=== PATIENT | female | born 1980 | race Caucasian/White ===

== ENCOUNTER 2022-12-15 21:53 | Inpatient (IN) | payer MEDICAID, OTHER ==
[~2022-12-15] VITALS: Ht 165.1 cm; Wt 90.9 kg
[2022-12-16] MEDS ORDERED: HOME MED LIST COMPLETE! XX SCH (00:50)
[2022-12-16] MEDS ORDERED: IBUPROFEN 600MG TAB PO ONE (06:10)
[2022-12-16] MEDS ORDERED: MOM 30ML SUSPENSION UDC PO PRN (06:40)
[2022-12-16] MEDS ORDERED: MAALOX 30 ML SUSP *UDC PO PRN (06:40)
[2022-12-16] MEDS ORDERED: ACETAMINOPHEN TAB 650MG DOSE (2X325MG) PO PRN (06:40)
[2022-12-16] MEDS ORDERED: NICOTINE 21MG/24HR 1 EA TRANSDERMAL TD SCH (09:00)
[2022-12-16 11:05] VITALS: BP 128/84
[2022-12-16] MEDS ORDERED: IBUPROFEN 400MG TAB PO PRN (13:00)
[2022-12-16] MEDS: diphenhydrAMINE 25MG CAP PO PRN ×2 (15:15→22:59)
[2022-12-16 18:00] VITALS: BP 125/68
[2022-12-16] MEDS: traZODone 50 MG TAB PO PRN (22:20)
[2022-12-17 06:43] VITALS: BP 103/57
[2022-12-17] MEDS ORDERED: clonazePAM 0.5 MG TAB PO ONE (10:55)
[2022-12-17] MEDS: DESVENLAFAXINE ER 50MG TABLET (PRISTIQ) PO SCH (11:45)
[2022-12-17 18:14] VITALS: BP 112/60
[2022-12-17] MEDS: diphenhydrAMINE 25MG CAP PO PRN (20:10)
[2022-12-17] MEDS: traZODone 50 MG TAB PO PRN (20:10)
[2022-12-18 06:42] VITALS: BP 117/54
[2022-12-18] MEDS ORDERED: DESV50TA3 PO (09:09)
[2022-12-18] MEDS: DESVENLAFAXINE ER 50MG TABLET (PRISTIQ) PO SCH (09:18)
[2022-12-18] MEDS: diphenhydrAMINE 25MG CAP PO PRN (13:11)
== END 2022-12-18 13:20 | disposition home or self-care (01) | DRG 753 ==
LOC: M ED 21:53 → M ED INP 12-16 06:36 → M PSY 12-16 11:25
PROVIDERS: ADMIT Student in an Organized Health Care Education/Training Program; ATTEND Student in an Organized Health Care Education/Training Program
DX: F39 Unspecified mood [affective] disorder (principal); F12.10 Cannabis abuse, uncomplicated; Z62.819 Personal history of unspecified abuse in childhood; F19.14 Other psychoactive substance abuse with psychoactive substance-induced mood disorder